=== PATIENT | female | born 1985 | race Caucasian/White ===

== ENCOUNTER 2025-06-30 19:07 | Emergency (ER) | payer SELFPAY ==
[2025-06-30 19:12] VITALS: BP 182/118; PULSE 122; RESP 20; TEMP 38.3; O2SAT 97; BMI 36.0
--- OUTSIDE RECORDS SUMMARY | 2025-06-30 19:13 | XMS_ITS | Patient Health Record ---
Author Organization [facility] Address [address] [place] [address] Care Team Providers Care Class 1 Owner Operator Name Role Phone [facility] Primary Care Provider [facility] Unavailable Unavailable Allergies No Known Allergies Reason For Referral No Information Medications Medication SIG (Take, Route, Frequency, Duration) Notes Start Date End Date Status dilTIAZem HCl ER 180 MG Capsule Extended Release 24 Hour 1 capsule Orally Once a day PRN; Duration: 30 days Active Ibuprofen 800 mg Tablet TAKE ONE TABLET BY MOUTH THREE TIMES DAILY NEEDED FOR inflammatory pain; Duration: 30 Active predniSONE 20 MG Tablet 2 tabs for 7 day s; 1 tab for 7 days; 1/2 tab for 7 days Orally Once a day Not-Alexander ing ALPRAZolam 0.5 MG Tablet 1/2 to 1 tab Or ally Twice a day prn anxiety; Duration: 30 days 09/03/2024 Active oxyCODONE-Acetaminophen 7.5-325 MG Tablet TAKE ONE TABLET BY MOUTH EVERY 8 HOURS NEEDED FOR SEVERE pain Oral; Duration: 14 Days Active Jsuxubzjno-Xggwhoo-Xaget ine 50-325-40 MG Capsule TAKE ONE CAPSULE BY MOUTH EVERY 4 HOURS NEEDED FOR HEADACHE; Duration: 30 11/01/2023 Not-Taking Polyethylene Glycol 3350 17 GM/SCOOP Powder FILL CAP TO LINE (17 GRAMS), MIX IN 8 OUNCES OF LIQUID AND DRINK BY MOUTH ONCE DAILY NEEDED FOR OPIOID INDUCED CONSTIPATION Oral; Duration: 30 Days Active B Complex - Capsule as directed Orally Not-Taking Lexapro 20 MG Tablet 1 tablet Orally Onc e a day; Duration: 30 days Active HYDROcodone-Acetaminophe n 5-325 MG Tablet 1 tablet as needed Orally every 6 hrs Not-Taking rOPINIRole HCl 1 MG Tablet 1 to 2 tabs Orally RLS; Duration: 30 days 01/07/2024 Not-Taking Olmesartan Medoxomil 40 mg Tablet TAKE ONE TABLET BY MOUTH DAILY; Duration: 30 Active Famotidine 40 mg Tablet TAKE ONE TABLET BY MOUTH DAILY; Duration: 30 Active Triamterene-HCTZ 37.5-25 MG Tablet 1 tablet in the morning Orally Once a day prn swelling; Duration: 30 days 09/03/2024 Active Immunizations Vaccine Route Administration Date Status Comme nts Flucelvax Trivalent, Syringe 0.5 mL, PF Unknown 024 Refused Social History Tobacco Use: Social History Observation Description Date Details (start date - stop date) Current Smoker NA - NA Social History Depression Screening Social Info Question Answer Notes depression screening findings Findings Negative (0 -4) PHQ-9 Little interest or p hayden in doing things Not at all Feeling down, depressed, or hopeless Not at all Trouble falling or staying asleep, or sleeping t oo much Not at all Feeling tired or having little energy Not at all Poor appetite or overeating Not at all Feeling bad about yourself, or that you are a failure, or have let yourself or your family down Not at all Trouble concentrating on thi ngs, such as reading the newspaper or watching television Not at all Moving or speaking so slowly that other people could have noticed. Or the opposite ? being so fidgety or restless that you have been moving around a lot more than usual Not at all Thoughts that you would be b martina off , or of hurting yourself in some way Not at all Total Score 0 Drugs/Alcohol: Social Info Question Answer Notes Alcohol Screen (Audit-C) Did you have a drink containing alcohol in the past year? Yes How often did you have a drink containing alcohol in the past year? 2 to 4 times a month (2 points) How many drinks did you have on a typical day when you were drinking in the past year? 3 or 4 drinks (1 point) How often did you have 6 or more drinks on one occasion in the past year? Never (0 point) Points 3 Interpretation Positive Drugs Have you used drugs other than those for medical reasons in the past 12 months? No Tobacco Use: Social Info Question Answer Notes xTobacco Use/Smoking Are you a current smoker How often do you smoke cigarettes? every day How many cigarettes a day do you smoke? 6-10 How soon after you wake up do you smoke your first cigarette? within 5 minutes Are you interested in quitting? Thinking about quitting Additional Details Category Social Info Options Details Drugs/Alcohol: Do you smoke marijuana? Ad mits Do you drink alcohol? Yes zzMigrated Social History Migrated Social History Smoking Status:Heavy tobacco smoker (finding) Section Notes: 06/05/2022 06/05/2022 06/05/2022 PHQ-9 Depression screen completed 11/01/2023 score 0 Depression screen completed 11/01/2023 score 0 Depression screen completed 11/01/2023 score 0 Depression screen completed 11/01/2023 score 0 Depression screen completed 11/01/2023 score 0 Problems Problem Type SNOMED Code ICD Code Onset Dates Problem Status W/U Status Risk Notes Problem Tobacco user (930516175) Nicotine dependence, cigarettes, uncomplicated (F17.210) Active confirmed Problem Primary insomnia (8280480) Primary insomnia (F51.01) Active confirmed Problem Anxiety (43809069) Anxiety (F41.9) Active confi rmed Problem Sinusitis (22902150) Sinusitis (J32.9) Active confirmed Problem Exacerbation of moderate persistent asthma (disorder) (797639709) Moderate persistent asthmatic bronchitis with acute exacerbation (J45.41) Active confirmed Problem Obesity (037659312) Obesity (BMI 30-39.9) (E66.9) Active confirmed Problem Depression (664127669) Depression (F32.9) Active confirmed Problem Right anterior knee pain (M25.561) Active confirmed Problem Restless legs syndrome (76736851) Restless leg syndrome (G25.81) Active confirmed Problem Gastroesophageal reflux disease (647245883) GERD (gastroesophageal reflux disease) (K21.9) Active confirmed Problem Personal history of drug abuse (F19.11) Active confirmed Problem Body mass index 30.00 to 34.99 (237295461503574) Body mass index [BMI] 33.0-33.9, adult (Z68.33) Active confirmed Problem Primary hypertension (04378355) Primary hypertension (I10) Active confirmed Problem Primary osteoarthritis (966004653) Primary osteoarthritis involving multiple joints (M15.9) Active confirmed Vital Signs Heart Rate 100 /min 09/03/2024 Temperature 97.7 degrees Fahrenheit 09/03/2024 Respiratory Rate 20 /min 09/03/2024 Oximetry 98 % 09/03/2024 Blood pressure diastolic 81 mm Hg 09/03/2024 Weight-kg 101.15 kg 09/03/2024 Height 66 in 09/03/2024 Blood pressure systolic 120 mm Hg 09/03/2024 Weight 223 lbs 09/03/2024 BMI 35.99 kg/m2 09/03/2024 Encounters Encounter Location Date Provider Diagnosis [facility] Office [address] [place] [address] 08/10/2024 [facility] Anxiety F41.9 ; Prim julissa hypertension I10 ; Hemorrhoids, unspecified hemorrhoid type K64.9 and Neck pain M54.2 [facility] Office [address] [place] [address] 09/03/2024 [facility] Immunization not carried out because of patient refusal Z28.21 ; Lumbar back pain M54.50 ; Encounter for screening mammogram for malignant neoplasm of breast Z12.31 ; Anxiety F41.9 and Swelling R60.9 [facility] [address] [place] [address] 08/21/2024 [facility] [address] [place] [address] 08/24/2024 [facility] Sinusitis J32.9 and Cough R05.9 [facility] [address] [place] [address] 12/07/2024 [facility] [address] [place] [address] 12/21/2024 [facility] [address] [place] [address] 03/18/2025 [facility] Assessments Encounter Date Diagnosis (ICD Code) Assessment Notes Treatment Notes Treatment Clinical Notes Section Notes 08/24/2024 Sinusitis (ICD-10 - J32.9) 08/24/2024 Cough (ICD-10 - R05.9) 09/03/2024 Immunization not carried out because of patient refusal (ICD-10 - Z28.21) 09/03/2024 Lumbar back pain (ICD-10 - M54.50) tramadol toradol 60 mg im x ray 08/10/2024 Anxiety (ICD-10 - F41.9) xanax lexapro 08/10/2024 Primary hypertension (ICD-10 - I10) diltiazem benicar 08/10/2024 Hemorrhoids, unspecified hemorrhoid type (ICD-10 - K64.9) annusol hc 09/03/2024 Encounter for screening mammogram for malignant neoplasm of breast (ICD-10 - Z12.31) mammogram 09/03/2024 Anxiety (ICD-10 - F41.9) xanax hydroxyzine 08/10/2024 Neck pain (ICD-10 - M54.2) 09/03/2024 Swelling (ICD-10 - R60.9) maxzide 08/10/2024 Other Questions asked and answered; discharged to home. 09/03/2024 Other Questions asked and answered; discharged to home. Plan Of Treatment Pending Test Test Name Order Date Lumbosacral Spine AP/Lat-19079 Mammogram Screening Digital Breast Tomos ynthesis, bilateral - 22383 09/03/2024 Insurance Providers Payer Name Payer Address Payer Phone Subscriber Number Group Number Insured Name Patient Relationship to Insured Coverage Start Date Coverage End Date [employer] [address] [place] [phone] [id number] Heather La Self - patient is the insured Medications Administered Medication Instructions Date of Administration Dosage Notes DEPO-Medrol 04/28/2024 [place] [address] 3-01 pt tolerated well/instructed to wait 20 min dexAMETHasone 04/28/2024 4 mg ndc 62265-8 423-00 pt tolerated well/instructed to wait 20 min Ketorolac Tromethamine 09/03/2024 [address] [place] [id number] pt tolerated well/instructed to wait 20 min Medical (General) History Medical History History ICD Code Problem:Arthritis (disorder) , Status :: Active Problem:Drug dependence (disorder) , Sta tus :: Active Problem:Hypertensive disorde r, systemic arterial (disorder) , Status :: Active Problem:Obesity (disorder) , Status :: A ctive Problem:Tobacco user (finding) , Status :: Active covid Surgical History Surgery Date(Month/Year) tubal ligation cholecystectomy left hip replacement Hospitalization History Reason Date(Month/Year) childbirth x4
[2025-06-30 20:46] VITALS: BP 186/123; PULSE 109; O2SAT 95
--- NOTE | 2025-06-30 20:54 | XRR_ITS ---
PROCEDURE INFORMATION: Exam: XR Chest Exam date and time: 06/30/2025 8:57 PM Age: 40 years old Clinical indication: Cough and fever; Additional info: Cough/fevers TECHNIQUE: Imaging protocol: Radiologic exam of the chest. Views: 1 view. COMPARISON: No relevant prior studies available. FINDINGS: Lungs: Unremarkable. No consolidation. Pleural spaces: Unremarkable. No pleural effusion. No pneumothorax. Heart/Mediastinum: Unremarkable. No cardiomegaly. Bones/joints: Unremarkable. XR/XR chest 1V portable [id number] IMPRESSION: No acute findings.
--- NOTE | 2025-06-30 20:54 | W.ED.URI ---
HPI - URI/Sore Throat General: Chief Complaint: Upper Respiratory Infection Stated Complaint: cant walk fever whole body hurts chest hurts Time Seen by Provider: 06/30/25 20:41 Source: patient Mode of arrival: ambulatory Limitations: no limitations History of Present Illness: Patient is a 40-year-old female presents to ED today with a complaint of cough, ear pain, diffuse body aches, fatigue, headache, sinus pain/pressure, nasal congestion, rhinorrhea, sore throat, nonproductive cough over the past 2 days or so. She is not complaining of abdominal pain, vomiting, or changes in bowel movements. Denies sick contacts. She is not having chest pain or shortness of breath. No rash. No recent tick bites. She states she is still eating and drinking well. MD elicited complaint: fever, cough, sore throat, rhinorrhea, nasal congestion and sinus pain Onset (ago): day(s) Consistency: constant Severity: moderate Description of mucous: clear Able to tolerate fluids by mouth: Yes Exacerbating factors: nothing Relieving factors: nothing Associated symptoms: Reports chills, ear or mastoid pain, fever(s), headache(s), nasal congestion, nausea and sinus pain; Deny abdominal pain, chest pain, diarrhea or vomiting Treatments prior to arrival: ibuprofen Related Data Allergies Allergy/AdvReac Type Severity Reaction Status Date / Time No Known Allergies Allergy Verified 06/30/25 19:16 Review of Systems Const: Reports: fever(s), chills, body aches, fatigue and malaise; Denies: change in appetite, change in weight or night sweats Eyes: Denies: change in vision, blurry vision, photophobia, eye discomfort, eye discharge, floaters or seeing flashes ENMT: Reports: throat pain, odynophagia, ear or mastoid pain, nasal discharge, nasal congestion and sinus pain Card: Denies: chest pain, palpitations, irregular heart rhythm, edema, swelling of feet/ankles, lightheadedness, syncope, pre-syncope, dyspnea on exertion, orthopnea, leg pain with exertion or acrocyanosis Resp: Reports: non-productive cough and chest congestion; Denies: dyspnea, productive cough, wheezing or hemoptysis GI: Reports: nausea; Denies: abdominal pain, vomiting, dysphagia or diarrhea : Denies: flank pain, difficulty voiding, dysuria, urinary frequency, urinary urgency or urinary hesitancy Musc: Reports: other (generalized body aches); Denies: neck pain, back pain, extremity pain, extremity swelling, joint pain, joint swelling, joint redness, muscle cramps or muscle weakness Skin/Breast: Denies: rash Neuro: Reports: headache(s); Denies: numbness in extremities, weakness in extremities, sensory changes or dizziness Physical Exam Const: COMMON NORMALS: no acute distress, patient oriented x3, no limitations, alert and well nourished GENERAL APPEARANCE: cooperative NUTRITIONAL APPEARANCE: overweight ORIENTATION/CONSCIOUSNESS: Yes awake, Yes oriented to person, Yes oriented to place and Yes oriented to time HENMT: COMMON NORMALS: normocephalic, atraumatic, hearing grossly normal bilaterally, external ears normal, EAC's normal, TM's normal bilaterally and Normal external nose present HEAD & SCALP: normal to inspection, normocephalic and atraumatic FACE & SINUS: sinus tenderness NOSE: Normal external nose present EXTERNAL EAR: Yes external ears normal EXTERNAL AUDITORY CANAL: EAC's normal TYMPANIC MEMBRANE: TM's normal bilaterally MOUTH: Normal oral and palatal mucosa present, lip normal, tongue normal and Normal salivary glands and ducts present THROAT: tonsils normal and posterior oropharynx abnormal erythema Eye: GENERAL EYE: appearance normal, both eyes and all related structures Neck/C-Spine: COMMON NORMALS: full ROM, no lymphadenopathy, supple and no meningeal signs Chest: COMMONS NORMALS: normal inspection of the chest Resp: COMMON NORMALS: normal respiratory effort and clear to auscultation bilaterally AUSCULTATION: clear to auscultation bilaterally Cardio: COMMON NORMALS: regular rhythm RATE: tachycardic (pt febrile) RHYTHM: regular rhythm GI: COMMON NORMALS: Normal to inspection, nondistended, normoactive bowel sounds present, Soft to palpation, non-tender, No hepatosplenomegaly present and no masses PALPATION: Yes Soft to palpation and Yes No hepatosplenomegaly present : COMMON NORMALS: Yes no CVA tenderness BLADDER/KIDNEY EXAM: Yes no CVA tenderness Back/Pelvis: COMMON NORMALS: no CVA tenderness, thoracic and lumbar spine normal to inspection and no thoracic nor lumbar tenderness Extremity: COMMON NORMALS: normal to inspection GENERAL: Yes normal exam except as noted Neuro: YANELY COMA SCALE: document GCS findings [place] coma scale eye opening: Spontaneous [place] coma scale verbal response: Orientated Yanely coma scale motor response: Obey commands [place] coma scale total score: 15 COMMON NORMALS: patient oriented x3, moves all extremities, no focal motor deficits and no sensory deficits noted SENSORIUM/ORIENTATION: Yes alert, Yes oriented to person, Yes oriented to place and Yes oriented to time MENINGEAL SIGNS: Yes no meningeal signs Skin: COMMON NORMALS: no rashes or lesions noted GENERAL SKIN EXAM: no rashes or lesions noted Course Vital Signs: Vital signs: Vital Signs Temperature 98.9 F 06/30/25 21:58 Pulse Rate 100 06/30/25 22:35 Respiratory Rate 20 H 06/30/25 19:12 Blood Pressure 141/90 06/30/25 22:35 Pulse Oximetry 95 06/30/25 22:35 Oxygen Delivery Me thod Room Air 06/30/25 22:00 MDM - URI/Sore Throat Medical Decision Making Patient feeling better after antipyretics and her home blood pressure medication. She is no longer hypertensive or tachycardic. She is now afebrile. Blood work showing a normal white count. Remainder of labs are unremarkable. Influenza/COVID/RSV was negative. CXR showing no acute findings. Symptoms consistent with a viral illness. Discussed conservative therapies. Signs and symptoms of prompt medical reevaluation were verbally discussed with patient. She can otherwise follow-up with primary care. Differential Diagnosis Likely upper respiratory infection, sinusitis, viral infection, bronchitis, influenza and pharyngitis Medical Records I reviewed the patient's medical records. Lab Data I reviewed the patient's lab results. 06/30/25 21:27 06/30/25 21:27 Radiology Impressions Chest X-Ray 06/30/25 20:54 IMPRESSION: No acute findings. Laboratory Results WBC 8.69 10^3/uL (3.29-11.43) 06/30/25 21: RBC 4.58 10^6/uL (3.85-5.65) 06/30/25 21: Hgb 12.70 g/dL (11.27-16.99) 06/30/25 21: Hct 38.6 % (36-47) 06/30/25 21: MCV 84.3 fl (85-98) L 06/30/25 21: MCH 27.7 pg (27-33) 06/30/25 21: MCHC 32.9 g/dL (30-55) 06/30/25: RDW 12.7 % (12.1-15.1) 06/30/25: Plt Count 320 10^3/cmm (157-399) 06/30/25: MPV 9.2 fL (7.4-10.4) 06/30/25: Neut % (Auto) 75.8 % 06/30/25: Lymph % (Auto) 6.7 % 06/30/25: [place] % (Auto) 9.7 % 06/30/25: Eos % (Auto) 6.1 % 06/30/25: Baso % (Auto) 1.0 % 06/30/25: Neut # (Auto) 6.59 10^3/uL (1.8-7.7) 06/30/25: Lymph # (Auto) 0.6 10^3/uL (0.8-4.8) L 06/30/25: [place] # (Auto) 0.8 10^3/uL (0.2-0.9) 06/30/25: Eos # (Auto) 0.5 10^3/uL (0.0-0.8) 06/30/25: Baso # (Auto) 0.1 10^3/uL (0.0-0.1) 06/30/25: Nucleated RBC % (auto) 0 % 06/30/25: Nucleated RBCs # 0.0 /100WBC 06/30/25 21: Sodium 134 mmol/L (136-145) L 06/30/25: Potassium 4.0 mmol/L (3.5-5.1) 06/30/25: Chloride 99 mmol/L (98-107) 06/30/25: Carbon Dioxide 20 mmol/L (22-29) L 06/30/25: Anion Gap 19.0 (5-19) 06/30/25 21: BUN 12 mg/dL (6-20) 06/30/25 21: Creatinine 0.7 mg/dL (0.5-0.9) 06/30/25 21: GFR Calculation 91.8 mL/min (90-130) 06/30/25 21: Glucose 100 mg/dL (65-115) 06/30/25 21: Calculated Osmolality 278 mOsm/kg (285-295) L 06/30/25 21: Calcium 8.8 mg/dL (8.5-10.5) 06/30/25 21: Total Bilirubin 0.2 mg/dL (0.15-1.2) 06/30/25 21: AST 17 U/L (0-32) 06/30/25 21: ALT 20 U/L (0-33) 06/30/25 21: Alkaline Phosphatase 94 U/L (35-105) 06/30/25 21: Total Protein 6.9 g/dL (6.6-8.7) 06/30/25 21: Albumin 4.0 g/dL (3.5-5.2) 06/30/25 21: Globulin 2.9 g/dL (1.3-4.6) 06/30/25 21:27 Influenza A (PCR) Negative (Negative) 06/30/25 19:19 Influenza Type B (PCR) Negative (Negative) 06/30/25 19:19 RSV (PCR) Negative (Negative) 06/30/25 19:19 SARS-CoV-2 (PCR) Negative (Negative) 06/30/25 19:19 All radiology interpretation(s) finalized by discharge Discharge Plan Discharge Patient Disposition: Home Clinical Impression: Viral illness Condition: Stable Discharge Orders: Discharge ED (Routine); Ordered 06/30/25 Ordered By: Stacie Lozano Referrals: Girish,SIMONE Arora [Primary Care Provider, Nurse Practitioner] Patient Instructions: Viral Syndrome (ED), Patient Portal & Francine Instructions Activity Restrictions/Additional Instructions: As we discussed, symptoms at this time are most likely viral. Blood work is unremarkable. Chest x-ray showing no evidence for pneumonia. Flu/COVID/RSV was negative. Discussed conservative therapies including rest, hydration, tgls-lwy-ebpqjtl medications such as Tylenol and Motrin to help with fevers and body aches. He may return to the emergency department or seek medical re-evaluation through your primary care office for any worsening or nonimprovement symptoms or any further concerns you may have. I hope you begin to feel better soon. Stand Alone Forms: Work/School Release Print Language: Armenian Coding Level of Care Code ED [place] Machine Operator for Gregg Jones
[2025-06-30 21:51] LABS: Hematocrit 38.6 % (36-47); Hemoglobin 12.70 g/dL (11.27-16.99); Mean Corpuscular HGB Conc 32.9 g/dL (30-55); Mean Corpuscular Hemoglobin 27.7 pg (27-33); Mean Corpuscular Volume 84.3 fl (85-98); Nucleated Red Blood Cells % 0 %; Platelet Count 320 10^3/cmm (157-399); Red Blood Count 4.58 10^6/uL (3.85-5.65); White Blood Count 8.69 10^3/uL (3.29-11.43)
[2025-06-30 21:58] VITALS: BP 152/77; PULSE 99; TEMP 37.2; O2SAT 95
[2025-06-30 22:00] VITALS: BP 141/90; PULSE 97; O2SAT 94
[2025-06-30 22:00] LABS: Respiratory Syncytial Virus Ce NEGATIVE (Negative); SARS-CoV-2 PCR NEGATIVE (Negative)
[2025-06-30 22:09] LABS: Alanine Aminotransferase 20 U/L (0-33); Albumin Level 4.0 g/dL (3.5-5.2); Alkaline Phosphatase 94 U/L (35-105); Anion Gap 19.0 (5-19); Aspartate Amino Transferase 17 U/L (0-32); Blood Urea Nitrogen 12 mg/dL (6-20); Calcium 8.8 mg/dL (8.5-10.5); Carbon Dioxide 20 mmol/L (22-29); Chloride 99 mmol/L (98-107); Creatinine Clr Calc Pharmacy 117.2176; Globulin 2.9 g/dL (1.3-4.6); Glucose 100 mg/dL (65-115); Osmolality Calculated 278 mOsm/kg (285-295); Potassium 4.0 mmol/L (3.5-5.1); Sodium 134 mmol/L (136-145); Total Protein 6.9 g/dL (6.6-8.7)
[2025-06-30 22:35] VITALS: BP 141/90; PULSE 100; O2SAT 95
== END 2025-06-30 22:37 | disposition home or self-care (01) ==
PROVIDERS: Emergency Medicine; Emergency Provider Physician Assistant; PCP Nurse Practitioner Family
DX: B34.9 Viral infection, unspecified (principal); Z11.52 Encounter for screening for COVID-19
CPT/HCPCS: 36415; 71045; 80053; 85025; 87637; 99284; J9999